=== PATIENT | female | born 1955 | race American Indian/Alaskan Native ===

== ENCOUNTER 2018-08-13 10:28 | Outpatient (CLI) | payer OTHER ==
--- NOTE | 2018-08-13 12:36 | Mammography Report ---
Bilateral mammogram: No previous studies are labeled. CAD study utilized. Findings: Heterogeneous breast parenchyma bilaterally. Focal 4 mm asymmetry posterior upper right breast. Focal 4 mm asymmetry mid outer right breast. No microcalcification. Normal axilla. In pression: Focal asymmetry is right breast. Comparison with previous studies is recommended. If previous studies are not available spot compression and sonographic examination advised. BI-RADS CATEGORY: 0 = Needs additional imaging evaluation ACR BI-RADS MAMMOGRAPHIC CODES: 0 = Needs additional imaging evaluation; 1 = Negative; 2 = Benign; 3 = Probably benign; 4 = Suspicious; 5 = Malignant; 6 = Known biopsy-proven malignancy COMMENT: 1. Dense breast tissue, i.e., adenosis, fibrocystic changes, etc., may obscure an underlying neoplasm. 2. Approximately 10% of cancers are not detected with mammography. 3. A negative mammography report should not delay biopsy if a clinically suspicious mass is present. COMMENT: Patient follow-up letters are generated in [employer].
== END 2018-08-13 10:29 | disposition home or self-care (01) ==
LOC: MAMMO 10:28
PROVIDERS: ATTEND Family Medicine
DX: Z12.31 Encounter for screening mammogram for malignant neoplasm of breast (principal)
CPT/HCPCS: 77067